=== PATIENT | female | born 1980 | race American Indian/Alaskan Native ===

== ENCOUNTER 2016-11-04 05:38 | Inpatient (IN) | payer MEDICAID, OTHER ==
--- NOTE | 2016-10-29 14:03 | History and Physical Report ---
History of Present Illness History of present illness: Visit Type: Pre-Op CC: no complaints. History of Present Illness: Patient presents for preop for LAVH, she has no further complaints..Radha Packer Pt presents for pre op for LAVH with BS. All risk/benefits/alternatives were d/ w pt and questions were addressed and answered. Consent forms signed. Pt given ample time to ask questions all of which were addressed. Pti has long h/o fibroids. She has know she had them dxd 2 years ago. She c/o back pain, heavy periods with passage of clots, frequency, lower abdominal bloating. Pt currently has a nexplanon in and has not had any relief of sx and the breakthough bleeding is also consistent. Last sono was 2 yrs ago. Pt is interested in a hysterctomy. Follow up sonogram confirmed several fibroids ranging in size from 2cm to 4cm and 8cm sized uterus. Vital Signs: Patient Profile: 36 Years Old Female Height: 61 inches Weight: 175 pounds BMI: 33.06 BP sittin / 60 (left arm) Vitals Entered By: Radha Packer (October 29, 2016 12:34 PM) Past History : 2 Term Births: 1 Premature Births: 1 Living Children: 2 Para: 2 Prev : 1 Prev. attempt? none PARTS FINISHER History Uterine Surgery (not C/S): negative Operations: positive x1 Hospitalizations: negative Anesthesia Complications: negative Abnormal PAP: negative Uterine Anomaly: negative ISABELL Exposure: negative Infertility: negative Medical Hx Comments: anemia Infection History HIV Risk Eval: no Personal hx. of genital herpes: no Partner hx. of genital herpes: no Hx of STD: None Active Medications (reviewed today): ULTRAM 50 MG TABS (TRAMADOL HCL) 1-2 po q 6hrs prn pain IBUPROFEN 800 MG TABS (IBUPROFEN) 1 po q6 hr prn pain AMLODIPINE () LISINOPRIL () LIPITOR () METFORMIN 500MG () 1 BID NRXPLANON () Current Allergies (reviewed today): No known allergies Past Medical History: Reviewed history from 08/01/2016 and no changes required: Anemia-s/p several iron infusions Past Surgical History: Reviewed history from 08/01/2016 and no changes required: positive x1 Social History: Reviewed history from 08/01/2016 and no changes required: Patient is single Smoking History: Patient has never smoked. 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 Past History Past Medical History: other (anemia) Past Surgical History: section PARTS FINISHER History: denies: abnormal PAP smear, chlamydia, gonorrhea Family/Genetic History: diabetes, hypertension, other (fibroids-mother and sister) Social history: no significant social history - Obstetrical History : 2 Para: 2 Hx # Term Pregnancies: 1 Number of Pregnancies: 1 Number of Living Children: 2 Medications and Allergies Allergies Allergy/AdvReac Type Severity Reaction Status Date / Time No Known Allergies Allergy Verified 10/29/16 07:35 Home Medications Medication Instructions Recorded Confirmed Last Taken Type Nitrofurantoin [place]/M-Cryst 100 mg PO Q12HR #14 capsule 11/01/13 Unknown Rx [Macrobid] - Physical Exam Cardiovascular: Normal S1, Normal S2 Lungs: Positive: Clear to auscultation Abdomen: Positive: normal appearance, soft. Negative: distention, tenderness Genitourinary (Female): Positive: other (deferred until EUA) Extremities: Positive: normal. Negative: tenderness, edema Results All other labs normal. Assessment and Plan - Patient Problems (1) Fibroid Status: Acute Qualifiers: Uterine leiomyoma location: U (2) Menorrhagia with regular cycle Status: Acute Plan to address problem: -failed medical therapy -desires surgeon intervention -consents signed and placed on the chart. -
--- NOTE | 2016-10-29 14:07 | Anesthesia Consultation ---
Anesthesia Consult and Med Hx Date of service: 10/29/16 - Airway Anesthetic Teeth Evaluation: Good (front teeth edges not smooth, slightly jagged ) ROM Head & Neck: Adequate Mental/Hyoid Distance: Adequate Mallampati Class: Class II Intubation Access Assessment: Probably Good - Pulmonary Exam CTA: Yes - Cardiac Exam Cardiac Exam: RRR - Pre-Operative Health Status ASA Pre-Surgery Classification: ASA2 Proposed Anesthetic Plan: General Nerve Block: TAP - Cardiovascular System Hx Hypertension: Yes (x 4 yrs) - Endocrine Hx Non-Insulin Dependent Diabetes: Yes - Hematic Hx Anemia: Yes - Other Systems Hx Cancer: No - Additional Comments Anesthesia Medical History Comments: migraines
[2016-10-29 14:20] LABS: Basophils % (Auto) 0.4 % (0.0-1.8); Eosinophils % (Auto) 0.9 % (0.0-4.3); Hemoglobin 12.3 gm/dl (10.1-14.3); Mean Corpuscular HGB Conc 35 % (30-34); Mean Corpuscular Hemoglobin 35 pg (28-32); Mean Corpuscular Volume 100 fl (79-97); Platelet Count 248 K/mm3 (140-440); Red Blood Count 3.51 M/mm3 (3.65-5.03); Red Cell Distribution Width 13.4 % (13.2-15.2); White Blood Count 5.3 K/mm3 (4.5-11.0)
[2016-10-29 14:33] LABS: Anion Gap 18 mmol/L; Blood Urea Nitrogen 6 mg/dL (7-17); Calcium 8.9 mg/dL (8.4-10.2); Carbon Dioxide 24 mmol/L (22-30); Chloride 101.8 mmol/L (98-107); Glucose 151 mg/dL (65-100); Potassium 4.2 mmol/L (3.6-5.0); Sodium 140 mmol/L (137-145)
[~2016-11-04 05:38] MED LIST: PEPCID PO NR
[2016-11-04] MEDS ORDERED: NACL 0.9% 1000 ML 1,000 ML IV SCH (06:00)
[2016-11-04] MEDS ORDERED: NACL BACTERIOSTATIC INFILTRATI ONE (06:15)
[2016-11-04] MEDS ORDERED: VERSED IV NR (07:00)
[2016-11-04] MEDS ORDERED: ANCEF/STERILE WATER 2 GM/20 ML 2 GM/20 ML SYRINGE IV NR (07:00)
[2016-11-04] MEDS ORDERED: DILAUDID IV PRN (07:10)
[2016-11-04] MEDS ORDERED: DIPRIVAN 10 MG/ML IV ONE (07:30)
[2016-11-04] MEDS ORDERED: ZEMURON IV ONE (07:31)
[2016-11-04] MEDS ORDERED: XYLOCAINE MPF 2% ONE (07:31)
[2016-11-04] MEDS ORDERED: MARCAINE 0.5% 30 ML INFILTRATI ONE (07:37)
[2016-11-04] MEDS ORDERED: ACD-A 500 ML IV ONE (07:56)
[2016-11-04] MEDS ORDERED: CALCIUM CHLORIDE IV ONE ×2 (07:56→10:00)
[2016-11-04] MEDS ORDERED: THROMBIN (BOVINE) TP ONE ×2 (07:56→10:00)
[2016-11-04] MEDS ORDERED: ZOFRAN IV PRN (08:00)
[2016-11-04] MEDS ORDERED: DECADRON ONE (08:26)
[2016-11-04] MEDS ORDERED: ZOFRAN ONE (08:26)
[2016-11-04] MEDS ORDERED: ROBINUL ONE (09:44)
[2016-11-04] MEDS ORDERED: NEOSTIGMINE ONE (09:44)
[2016-11-04] MEDS ORDERED: NACL 0.9% 1000 ML 2,000 ML ONE (09:49)
[2016-11-04] MEDS ORDERED: ACD-A IV ONE (10:00)
[2016-11-04] MEDS ORDERED: NACL 0.9% IR ONE ×2 (10:00)
[2016-11-04] MEDS ORDERED: NEO SYNEPHRINE/NS Syringe(OR USE) IV ONE (10:00)
[2016-11-04] MEDS ORDERED: MARCAINE 0.5% INFILTRATI ONE (10:00)
[2016-11-04] MEDS ORDERED: MORPHINE PCA 30MG/30ML IV ONE (10:25)
--- NOTE | 2016-11-04 10:26 | Operative Report ---
Operative Report Operative Report: Date of procedure: 11/04/2016 Pre-operative diagnosis: Menorrhagia Uterine fibroids Post-operative diagnosis: Same plus pelvic adhesions Procedure name(s): 1. Exploratory laparotomy 2. Total abdominal hysterectomy 3. Bilateral salpingectomy 4. Diagnostic laparoscopy Surgeon: Henrietta Rubin M.D. Guest Services Director: Dr. Jimenez Anesthesia: Gen. endotracheal anesthesia EBL: 300 mL Urine output: 200 mL of clear urine at end of procedure Fluids: 2 L Findings: Approximately 14-16 week size uterus with numerous fibroids of various sizes noted from approximately 1 cm to 5 cm Adhesions of the uterus to the anterior abdominal wall and the omentum Adhesions of the bladder to the lower uterine segment Indications: Patient with long history of menorrhagia and uterine fibroids was evaluated and desired definitive therapy for symptoms. Patient currently was using hormonal therapy that was not providing relief of symptoms. All risks benefits and alternatives were discussed with the patient. Patient desired removal of the uterus with removal of fallopian tubes. Procedure: Patient was taken to the operating room wishes placed under general endotracheal anesthesia. She was then prepped and draped in normal sterile fashion. Patient's legs were placed in Jose stirrups. Johnson catheter was placed. Speculum was placed inside of the vagina. The anterior lip of the cervix was grasped with a hughes tenaculum and the uterus was sounded . Cervical dilation was performed in order to allow placement of the uterine manipulator. A 5 mm incision was made at the umbilicus. Direct with direct visualization trocar was placed. Missed at this point that diagnostic laparoscopy was performed and showed numerous adhesions as described above as well as enlarged uterus with large fibroids. As at this point that it was decided that the procedure should be done via laparotomy. Incision was made with the scalpel and carried down to the underlying layer of fascia with the scalpel and the Bovie through previous scar. The fascia was incised in the midline and this incision was extended superiorly and inferiorly. The peritoneum was entered into sharply and this incision was extended superiorly and inferiorly. Lysis of adhesions was done bluntly and sharply. The bowel was packed away with moist wet laps. The uterus was exteriorized. Exploratory laparotomy was performed with the above-stated findings. The O'Samson-O' Teague retractor was placed .Attention was turned to the round ligaments bilaterally. The round ligaments were grasped with the Gloria clamps transected and suture ligated with excellent hemostasis noted. The anterior leaf of the broad ligament was opened and the bladder flap was created. The bladder was dissected off of the lower uterine segment and the cervix. Attention was turned to the tubo-ovarian ligament which was clamped with Lindsey clamps 2 transected and suture ligated with excellent hemostasis noted. Attention was turned to the uterine arteries bilaterally which a similar fashion were grasped with Lindsey clamps transected and suture ligated with excellent hemostasis noted. The uterus was amputated from the cervix. The cervix was grasped with a single-tooth tenaculum 2. The cardinal and uterosacral ligaments in likewise fashion were grasped with Lindsey clamps transected and suture ligated with excellent hemostasis noted. The Zeppelin clamps were then placed below the level of the cervix with care of and taken that the bladder had been dissected off of the lower uterine segment of the uterus. The uterus and cervix were then amputated from the vagina. The vaginal cuff angles were secured with Lizzie stitches using 0 Vicryl bilaterally. The remainder of the vaginal cuff was closed using a series of [id number] sutures using 0 Vicryl. The pelvis was then irrigated. Excellent hemostasis was noted. Tisseel was placed along the incision line of the vaginal cuff. All instruments and laps were removed from the abdomen. All lap counts were correct at this point. The fascia was then closed using 0 Vicryl in a running fashion. The subcuticular fat was reapproximated with 2-0 Vicryl in both interrupted sutures and running fashion. The skin was then closed in a subcuticular stitch using 4-0 Vicryl. The patient tolerated the procedure well. Sponge lap and needle counts were all correct 3. Ancef was given prior to the onset of procedure.
[2016-11-04] MEDS: MORPHINE PCA 30MG/30ML IV SCH (10:30)
--- NOTE | 2016-11-04 10:31 | Anesthesia Day of Surgery ---
Anesthesia Day of Surgery - Day of Surgery Patient Examined: Yes Patient H&P Reviewed: Yes Patient is NPO: Yes
--- NOTE | 2016-11-04 10:41 | Post Anesthesia Evaluation ---
- Post Anesthesia Evaluation Patient Participated: Yes Airway Patent: Yes Stable Respiratory Function: Yes Nausea/Vomiting: No Temp > 96.8F: Yes Pain Manageable: Yes Adequeate Hydration: Yes Anesthesia Complications: No Block Receding Appropriately: Not Applicable Patient on Ventilator: No
[2016-11-04] MEDS ORDERED: NARCAN 0.4 MG/1 ML IV PRN (11:00)
[2016-11-04] MEDS ORDERED: D5LR 1,000 ML IV SCH (11:00)
[2016-11-04] MEDS ORDERED: TYLENOL PO PRN (11:00)
[2016-11-04] MEDS ORDERED: SUBLIMAZE IV ONE (14:00)
--- NOTE | 2016-11-04 14:38 | Admit Criteria Form ---
Admission Criteria Documentation: AMBULATORY SURGERY EXCEPTION CRITERIA Ambulatory Surgery Exception Criteria ( Place 'X' for any and all applicable criteria): Surgery or procedure performed on ambulatory basis may require inpatient stay for[A] ANY ONE of the following(1)(2)(3)(4)(5)(6)(7)(8)(9): [X] I. A preoperative situation, condition, or finding that warrants inpatient stay as indicated by ANY ONE of the following: [] a) Inpatient care needed because of severity of a disease or condition rather than the surgery (eg, severe cardiac or respiratory disease, severe infection) (15) (16 ) (17) (18) [] b) Emergent procedure (eg, angioplasty for acute ischemia)(19) [X] c) Complex surgical approach or situation as indicated by ANY ONE of the following(3): [X] i) Open approach needed instead of usual endoscopic, transcatheter, or other less invasive procedure [] ii) Difficult approach because of previous operation [] iii) Airway monitoring required after open neck procedures(20)(21) [] iv) Large mass requiring unusually extensive dissection [] v) Additional complicating feature requiring inpatient care (eg, drain management)(22(23): [] d) Major surgery in a pt with high anesthetic risk as indicated by ANY ONE of the following (2)(3)(5)(7)(8): [] i) ASA risk class III or higher (severe systemic disease impairing function) [D] [] ii) Advanced age (eg, older than 85 years)(14)(24) [] iii) Symptomatic heart failure(25) [] iv) Symptomatic asthma or COPD(8)(21) [] v) Morbid obesity with hemodynamic or respiratory problems(20)( 21)(26)(27) [] vi) Obstructive sleep apnea(20)(21) [] vii) Former premature infants who are younger than 60 weeks [] viii) High risk for severe postoperative abnormalities (eg, severe postoperative hypocalcemia after parathyroidectomy for severe hyperparathyroidism)(27)( 28) [] ix) Unstable angina(25) [] e) Drug-related risk requiring inpatient stay as indicated by ANY ONE of the following(5)(10)(14)(32)(33) [] i) Procedure requires discontinuing drugs or other therapy (eg , antiarrhythmic medication, antiseizure medication), which necessitates inpatient observation or treatment.(18)(31) [] ii) Major surgery and high risk drug use as indicated by ANY ONE of the following: [] 1) Active abuse of cocaine or similar drug [] 2) Monoamine oxidase inhibitor use [] 3) Other drug identified as posing risk [] f) Inadequate outpatient care situation as indicated by ANY ONE of the following(5)(10)(14)(32)(33) [] i) Patient lives remote from medical facility and procedure has urgent complication potential, and temporary nearby residence cannot be arranged [] ii) Patient will have postprocedure incapacitation and inadequate assistance at home, or alternative level of care cannot be arranged. [] iii) Patient will have long general anesthesia or procedure side effect resolution time, and competent person to stay with patient on first postoperative night at home or alternative level of care cannot be arranged. []iv) Other inadequate outpatient situation that cannot be handled by other means [] II. A perioperative event, condition, or finding that warrants inpatient stay as indicated by ANY ONE of the following (1)(2)(3): [] a) Inadequate physiologic recovery: cardiovascular, respiratory, or hemodynamic status not normal or near preoperative baseline(18) [] b) Hemodynamic instability [] c) Patient not alert with near normal or baseline mental status [] d) Temperature not normal or as expected and not appropriate for outpatient treatment of condition [] e) Ambulatory or appropriate activity level status not yet achieved post procedure [E](34)(35)(36) [] f) Operative site not appropriate (eg, unexpected or excessive drainage or bleeding) [] g) Postoperative effects not resolved or adequately managed (eg, significant pain or vomiting not appropriate for outpatient or next level of care)(10)(12) [] h) Complicating features requiring inpatient care as indicated by ANY ONE of the following(37): [] i) Severe complications of procedure (eg, bowel injury, airway compromise, vascular injury,severe hemorrhage) [] ii) Extensive (eg, dissection far beyond usual scope of procedure ) or prolonged (eg, 120 minutes beyond usual) surgery needed requiring inpatient postoperative care [] iii) Conversion to an open or complex procedure that requires inpatient care (eg, open vs laparoscopic cholecystectomy, abdominal vs vaginal hysterectomy)(38) [] iv) Comorbid condition or test result identified during or post procedure that requires inpatient care (7) [] v) Malignant hyperthermia(30) [] vi) Other complicating feature requiring inpatient care(22)(23) Inpatient stay may be needed until ALL of the following are present (1)(2)(3)(4) (5)(6)(10)(14)(33)(40): []a) Physiologic recovery: cardiovascular, respiratory, and hemodynamic status normal or near preoperative baseline []b) Hemodynamic stability []c) Patient alert, with near normal or baseline mental status []d) Temperature appropriate: patient afebrile or temperature appropriate for outpt treatment of condition []e) Activity level appropriate: ambulatory or appropriate activity level post procedure []f) Operative site appropriate as indicated by ALL of the following: []i) Site dry or with expected drainage []ii) Any blood noted is as expected for procedure. []g) Postoperative effects resolved or managed as indicated by ALL of the following: []i) Pain management appropriate for outpatient (or next level of) care(10) []ii) Minimal nausea and vomiting: if present, successfully treated with oral medication(12) []iii) Headache, dizziness, or drowsiness (if present) are mild. []h) Voiding status acceptable as indicated by ANY ONE of the following: []i) Voiding spontaneously []ii) No voiding but instructions given for follow-up in 6 to 8 hours []iii) Urinary catheter in place, and instructions given for follow-up []i) Complicating features requiring inpatient care manageable at a lower level of care(37) []j) Comorbid conditions manageable at a lower level of care(37) The original [employer] content created by [employer] has been revised. The portions of the content which have been revised are identified through the use of italic text or in bold, and [facility] [employer] has neither reviewed nor approved the modified material. All other unmodified content is copyright [employer]. Please see references footnoted in the original [employer] edition 2016 Admission Criteria Met: Yes
[2016-11-04] MEDS: ZOFRAN IV PRN (14:50)
[2016-11-04] MEDS: TORADOL IV SCH ×2 (16:10→23:37)
[2016-11-04] MEDS: ANCEF/NS 1 GM/50 ML 1 GM/50 ML BAG IV SCH ×2 (16:10→23:36)
[2016-11-04] MEDS: LACTATED RINGERS 1,000 ML IV SCH (21:37)
[2016-11-05] MEDS: MORPHINE PCA 30MG/30ML IV SCH (02:36)
[2016-11-05] MEDS: ZOFRAN IV PRN (02:46)
[2016-11-05] MEDS: LACTATED RINGERS 1,000 ML IV SCH (05:38)
[2016-11-05] MEDS: TORADOL IV SCH (05:39)
[2016-11-05 07:42] LABS: Hematocrit 28.8 % (30.3-42.9)
[2016-11-05] MEDS: GLUCOPHAGE PO SCH ×2 (09:37→18:26)
[2016-11-05] MEDS: NORCO 5/325 PO PRN ×3 (10:01→23:08)
--- NOTE | 2016-11-05 10:03 | Progress Note ---
Assessment and Plan - Patient Problems (1) Fibroid Current Visit: Yes Status: Resolved Qualifiers: Uterine leiomyoma location: U (2) Menorrhagia with regular cycle Current Visit: Yes Status: Resolved (3) S/P ROSALINO (total abdominal hysterectomy) Current Visit: Yes Status: Acute Plan to address problem: -routine post op care -ambulate TID -IS at bedside -ADAT (4) Diabetes Current Visit: Yes Status: Acute Qualifiers: Diabetes mellitus type: D Diabetes mellitus complication status: without complication Diabetes mellitus complication detail: D Diabetic retinopathy severity: D Proliferative retinopathy type: P Diabetes mellitus macular edema: D Diabetes mellitus detention insulin use: D Laterality: L Chronic kidney disease stage: C Plan to address problem: -BG elevated at this time. Will restart po meds and closely monitor (5) Hypertension Current Visit: Yes Status: Acute Qualifiers: Hypertension type: H Plan to address problem: -bp normal on no meds so being held at this time -con't to closely monitor. Subjective - Subjective Date of service: 11/05/16 Principal diagnosis: POD #1 s/p ROSALINO with BS. PARRY Interval history: pt c/o having some nausea after taking the toradol but she denies any emesis. Pt states her back pain is much better today. POD #0 she c/o having right low back pain. Pt denies any other pain and states incision is not hurting today. Patient reports: appetite normal, pain well controlled Objective - Vital Signs Latest vital signs: Vital Signs Temp Pulse Resp BP Pulse Ox 11/05/16 10:01 20 11/05/16 09:50 20 11/05/16 07:00 98.0 F 74 20 105/60 11/05/16 04:00 98.5 F 79 18 115/63 11/05/16 00:00 98.4 F 76 16 120/72 11/04/16 22:00 18 11/04/16 20:50 18 11/04/16 20:00 98.5 F 80 18 119/69 11/04/16 16:00 98.7 F 78 18 109/71 11/04/16 14:08 18 11/04/16 14:00 20 11/04/16 11:50 97.4 F L 91 H 12 107/69 11/04/16 11:35 97.4 F L 91 H 18 107/69 11/04/16 11:15 84 12 112/66 100 11/04/16 11:00 86 14 112/64 98 11/04/16 10:45 87 13 119/66 98 11/04/16 10:30 85 16 118/61 100 11/04/16 10:25 92 H 14 128/70 100 11/04/16 10:20 95 H 15 120/65 100 11/04/16 10:15 98.1 F 98 H 13 115/63 100 Intake and Output 11/04/16 11/05/16 11/05/16 22:59 06:59 14:59 Intake Total 1030 1000 Output Total 2750 1350 Balance -1720 -350 Intake: IV 550 1000 ANCEF/NS 1 GM/50 ML 1 gm 50 In 50 ml @ 100 mls/hr IV Q8H MURALI Rx#:[id number] Lactated Ringers 1,000 ml 500 1000 @ 125 mls/hr IV DIRECT MURALI Rx#:[id number] Oral 480 Output: Urine 2350 1350 Indwelling Catheter 2350 1000 Void 350 Emesis 400 Other: Total, Intake Amount 480 Total, Output Amount 450 950 Voiding Method Indwelling Catheter # Voids Void 1 - Exam Cardiovascular: Present: Normal S1, Normal S2 Lungs: Present: Clear to auscultation, Normal air movement Abdomen: Present: normal appearance, soft, normal bowel sounds (slightly decreased). Absent: distention, tenderness, guarding Vulva: both: normal Extremities: Present: normal. Absent: tenderness, edema Incision: Present: normal, dry, intact (open to air with surgical glue in place. some old blood noted. No active bleeding from the incision.) - Labs Labs: Abnormal lab results 11/04/16 11/04/16 11/04/16 Range/Units 10:41 18:17 21:30 Hgb (10.1-14.3) gm/dl Hct (30.3-42.9) % POC Glucose 213 H 228 H 195 H (70-105) 11/05/16 Range/Units 06:44 Hgb 10.0 L (10.1-14.3) gm/dl Hct 28.8 L (30.3-42.9) % POC Glucose (70-105)
[2016-11-06] MEDS: MOTRIN PO PRN ×3 (00:53→23:37)
[2016-11-06] MEDS: NORCO 5/325 PO PRN (06:20)
[2016-11-06] MEDS ORDERED: ZOFRAN IV ONE (09:00)
[2016-11-06] MEDS: GLUCOPHAGE PO SCH ×2 (11:36→18:33)
--- NOTE | 2016-11-06 13:41 | Progress Note ---
Assessment and Plan - Patient Problems (1) Fibroid Current Visit: Yes Status: Resolved Qualifiers: Uterine leiomyoma location: U (2) Menorrhagia with regular cycle Current Visit: Yes Status: Resolved (3) S/P ROSALINO (total abdominal hysterectomy) Current Visit: Yes Status: Acute Plan to address problem: -routine post op care -ambulate TID -IS at bedside (4) Diabetes Current Visit: Yes Status: Acute Qualifiers: Diabetes mellitus type: D Diabetes mellitus complication status: without complication Diabetes mellitus complication detail: D Diabetic retinopathy severity: D Proliferative retinopathy type: P Diabetes mellitus macular edema: D 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 Subjective - Subjective Date of service: 11/06/16 Principal diagnosis: POD #2 s/p ROSALINO with BS. SOHAN Interval history: Pt had emesis times at 2am and at 6am. Both were following the narco administration without eating. She had no nausea or emesis with lunch yesterday or dinner last pm. She inquired about bp meds and I advised that at this time her bp remains in the low ranges so no meds have been given but if it appears they are increasing pb meds would be restarted. BG having improved with taking the metformin. Pt did have temp on 100.0 on 11/05 @ 0000am and on 11/06 @ 0000am. I believe this to be due to ateleticis. Pt was encouraged to ambulate and aggressively use the IS. Pt expressed understanding. The back pain pt had yesterday has resolved. +flattus. Currently did not eat lunch not due to nausea but fear of emesis. States she would like to sleep off the medications at this time and try eating a little later. Pt states she overall feels much better today. Patient reports: appetite normal, voiding normally, pain well controlled, flatus , ambulating normally, nauseated, no dizzy ambulation Objective - Vital Signs Latest vital signs: Vital Signs Temp Pulse Resp BP 11/06/16 08:00 98.7 F 94 H 19 122/74 11/06/16 07:45 18 11/06/16 04:15 98.9 F 76 18 118/63 11/06/16 00:00 100.0 F H 68 18 102/68 11/05/16 20:00 98.5 F 86 18 105/69 11/05/16 16:25 98.5 F 87 18 109/67 11/05/16 16:15 20 Intake and Output 11/05/16 11/06/16 11/06/16 22:59 06:59 14:59 Intake Total 240 Balance 240 Intake: Oral 240 Other: Total, Intake Amount 240 Voiding Method Toilet # Voids Void 3 1 - Exam Cardiovascular: Present: Normal S1, Normal S2 Lungs: Present: Clear to auscultation, Normal air movement Abdomen: Present: soft, normal bowel sounds. Absent: distention, tenderness, guarding Extremities: Present: normal. Absent: tenderness, edema Deep Tendon Reflex Grade: Normal +2 Incision: Present: normal, dry, intact - Labs Labs: Abnormal lab results 11/05/16 11/05/16 11/05/16 Range/Units 07:46 11:12 17:01 POC Glucose 163 H 168 H 192 H (70-105) 11/05/16 11/06/16 11/06/16 Range/Units 21:28 08:22 12:17 POC Glucose 202 H 178 H 150 H (70-105)
[2016-11-07] MEDS: MOTRIN PO PRN (05:30)
[2016-11-07] MEDS: GLUCOPHAGE PO SCH (08:21)
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
[2016-11-07 10:26] VITALS: BP 117/77
== END 2016-11-07 11:09 | disposition home or self-care (01) | DRG 743 ==
LOC: OR 05:38 → OB 10:17
PROVIDERS: ADMIT Obstetrics & Gynecology; ATTEND Obstetrics & Gynecology
PROC: 0UT90ZZ Resection of Uterus, Open Approach (ICD-10-PCS; principal; 2016-11-04)
PROC: 0UTC0ZZ Resection of Cervix, Open Approach (ICD-10-PCS; 2016-11-04)
PROC: 0UT70ZZ Resection of Bilateral Fallopian Tubes, Open Approach (ICD-10-PCS; 2016-11-04)
PROC: 0UB00ZZ Excision of Right Ovary, Open Approach (ICD-10-PCS; 2016-11-04)
PROC: 0UJD4ZZ Inspection of Uterus and Cervix, Percutaneous Endoscopic Approach (ICD-10-PCS; 2016-11-04)
DX: N92.0 Excessive and frequent menstruation with regular cycle (principal); D25.9 Leiomyoma of uterus, unspecified; I10 Essential (primary) hypertension; N83.201 Unspecified ovarian cyst, right side; E11.9 Type 2 diabetes mellitus without complications; G43.909 Migraine, unspecified, not intractable, without status migrainosus; Z82.49 Family history of ischemic heart disease and other diseases of the circulatory system; Z83.3 Family history of diabetes mellitus
CPT/HCPCS: 36415; 80048; 82962; 84703; 85014; 85018; 85025; 86850; 86900; 86901; 88302; 88305; 88307; 88311; A4217; J0690; J1100; J1170; J1885; J2250; J2270; J2370; J2405; J2704; J2710; J3010; J7030; J7120

== ENCOUNTER 2019-01-17 16:54 | Emergency (ER) | payer OTHER ==
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
[2019-01-17 17:52] VITALS: BP 134/104
--- NOTE | 2019-01-17 18:30 | XRay Report ---
LUMBAR SPINE 2 VIEWS INDICATION / CLINICAL INFORMATION: low back pain. COMPARISON: None available. FINDINGS: VERTEBRAE: No acute fracture. No significant malalignment. DISC SPACES / FACET JOINTS:No significant abnormality. PARASPINAL SOFT TISSUES:No significant abnormality. ADDITIONAL FINDINGS: None. Signer Name: Sandra Corcoran MD Signed: 01/17/2019 6:25 PM Workstation Name: [id number]
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
[2019-01-17] MEDS ORDERED: oxyCODONE /ACETAMINOPHEN 5-325MG TAB PO STA (22:25)
== END 2019-01-17 22:42 | disposition home or self-care (01) ==
LOC: ED 16:54
DX: M54.5 Low back pain (principal); I10 Essential (primary) hypertension; E11.9 Type 2 diabetes mellitus without complications; G43.909 Migraine, unspecified, not intractable, without status migrainosus; Z79.899 Other long term (current) drug therapy; V49.49XA Driver injured in collision with other motor vehicles in traffic accident, initial encounter; Y93.89 Activity, other specified; Y92.410 Unspecified street and highway as the place of occurrence of the external cause; Y99.8 Other external cause status
CPT/HCPCS: 72100